=== PATIENT | male | born 1935 | race Caucasian/White ===

== ENCOUNTER 2017-05-13 10:13 | Day surgery (SDC) | payer MEDICARE, BC ==
[~2017-05-13 10:13] MED LIST: Acetaminophen TAB* 325 MG PO PRN; Buffered Lidocaine 0.9% SYRIN* 5 ML/SYR SYRINGE INTRADERM ONE; Cyclopentolate 1% OPTH.SOL* 2 ML BTL ONE; Ketorolac 0.5% OPHTH (NF) 0.5 % 5 ML BTL ONE; Lidocaine 1% MPF* 2 ML VIAL ONE; Neomycin/Polymy/Dex OPHTH.OIN* 3.5 GM ONE; Phenylephr/Ketorolac 1%/0.3% OPH DROP BTL ONE; Phenylephrine 2.5% OPTH.SOL* 2 ML BTL ONE; Tetracaine 0.5% OPTH.SOL 4 ML* 1 DROP BTL ONE; Tropicamide 1% OPTH.SOL* BTL ONE
[2017-05-13] MEDS ORDERED: Midazolam* 1 MG/ML 2 ML VIAL (2 MG) ONE (11:39)
[2017-05-13 12:10] VITALS: BP 151/82
--- NOTE | 2017-05-13 12:59 | OP ---
DATE OF OPERATION/DATE OF DICTATION: 05/13/2017 - [facility] DATE OF : 1935. SURGEON: Dr. Ghulam Padilla. ASSISTANT PROFESSOR OF RELIGION: None. ANESTHESIA: Topical with intravenous sedation. PRE-OP DIAGNOSIS: Cataract, left eye. POST-OP DIAGNOSIS: Cataract, left eye. OPERATIVE PROCEDURE: Phacoemulsification and cataract extraction with posterior chamber intraocular lens implant, left eye. COMPLICATIONS: None. BLOOD LOSS: None. DESCRIPTION OF PROCEDURE: The patient was brought to the operating room and received a small amount of intra-venous sedation. A drop of Tetracaine was placed in his left eye. He was prepped and draped in the usual sterile fashion for ophthalmic surgery and attention was directed to the left eye where a speculum was placed. A paracentesis was created at the 5 o'clock position and 0.1 cc of 1 percent preservative-free Lidocaine was injected into the anterior chamber followed by DisCoVisc. The eye was digitally stabilized while a 2.75 mm keratome was used to create a triplanar clear corneal incision at the 3 o'clock position. A continuous curvilinear capsulorrhexis was created with a cystotome and Utrata forceps. BSS on a cannula was used to hydrodissect the lens from the capsule. Phacoemulsification was performed in a [id number] technique to create four fragments which were removed. Residual cortical material was removed with irrigation and aspiration. DisCoVisc was used to inflate the capsular bag and an AUOOTO 21.0 diopter lens was folded and inserted into the capsular bag. DisCoVisc was removed using irrigation and aspiration. BSS on a cannula was used to hydrate the corneal stroma and seal the wound. At the end of the case the pupil was round and the lens was centered. The eye was of normal pressure and the wound was water tight. The speculum was removed and topical Maxitrol ointment was placed on the surface of the eye. The eye was closed, patched and shielded and the patient was sent to the recovery room in stable condition with post operative instructions and follow-up appointment given. [id number] #: [id number] MTDD
== END 2017-05-13 12:20 | disposition home or self-care (01) ==
LOC: OREAST 10:13
PROVIDERS: ATTEND Ophthalmology
DX: H25.12 Age-related nuclear cataract, left eye (principal); I48.92 Unspecified atrial flutter; Z79.01 Long term (current) use of anticoagulants; Z86.73 Personal history of transient ischemic attack (TIA), and cerebral infarction without residual deficits; I10 Essential (primary) hypertension; I71.4 Abdominal aortic aneurysm, without rupture
CPT/HCPCS: A9270-GY; C9447; J2250; V2632

== ENCOUNTER 2017-05-20 07:51 | Day surgery (SDC) | payer MEDICARE, BC ==
[2017-05-20] MEDS ORDERED: Midazolam* 1 MG/ML 2 ML VIAL (2 MG) ONE ×2 (08:14→09:06)
[2017-05-20] MEDS ORDERED: fentaNYL* 50 MCG/ML 2 ML VIAL (100 MCG VIAL) ONE (08:14)
[2017-05-20 09:01] VITALS: BP 152/83
--- NOTE | 2017-05-20 09:42 | OP ---
DATE OF OPERATION/DATE OF DICTATION: 05/20/2017 - [facility] DATE OF : 1935. SURGEON: Dr. Ghulam Padilla. AVIATION PROJECT MANAGER: None. ANESTHESIA: Topical with intravenous sedation. PRE-OP DIAGNOSIS: Cataract, right eye. POST-OP DIAGNOSIS: Cataract, right eye. OPERATIVE PROCEDURE: Phacoemulsification and cataract extraction with posterior chamber intraocular lens implant, right eye. COMPLICATIONS: None. BLOOD LOSS: None. DESCRIPTION OF PROCEDURE: The patient was brought to the operating room and received a small amount of intravenous sedation. A drop of Tetracaine was placed in his right eye. He was prepped and draped in the usual sterile fashion for ophthalmic surgery and attention was directed to the right eye where a speculum was placed. A paracentesis was created at the 11 o'clock position and 0.1 cc of 1 percent preservative-free Lidocaine was injected into the anterior chamber followed by DisCoVisc. The eye was digitally stabilized while a 2.75 mm keratome was used to create a triplanar clear corneal incision at the 9 o'clock position. A continuous curvilinear capsulorrhexis was created with a cystotome and Utrata forceps. BSS on a cannula was used to hydrodissect the lens from the capsule. Phacoemulsification was performed in a divide-and- conquer technique to create four fragments which were removed. Residual cortical material was removed with irrigation and aspiration. DisCoVisc was used to inflate the capsular bag and an AUOOTO 22.0 diopter lens was folded and inserted into the capsular bag. DisCoVisc was removed using irrigation and aspiration. BSS on a cannula was used to hydrate the corneal stroma and seal the wound. At the end of the case the pupil was round and the lens was centered. The eye was of normal pressure and the wound was water tight. The speculum was removed and topical Maxitrol ointment was placed on the surface of the eye. The eye was closed, patched and shielded and the patient was sent to the recovery room in stable condition with post operative instructions and follow-up appointment given. [id number] #: [id number] MTDD
[2017-05-20] MEDS ORDERED: Tetracaine 0.5% OPTH.SOL 4 ML* 1 DROP BTL ONE (13:56)
[2017-05-20] MEDS ORDERED: Neomycin/Polymy/Dex OPHTH.OIN* 3.5 GM ONE (13:56)
[2017-05-20] MEDS ORDERED: Tropicamide 1% OPTH.SOL* BTL ONE (13:56)
[2017-05-20] MEDS ORDERED: Lidocaine 1% MPF* 2 ML VIAL ONE (13:56)
[2017-05-20] MEDS ORDERED: Phenylephrine 2.5% OPTH.SOL* 2 ML BTL ONE (13:56)
[2017-05-20] MEDS ORDERED: Cyclopentolate 1% OPTH.SOL* 2 ML BTL ONE (13:56)
[2017-05-20] MEDS ORDERED: Ketorolac 0.5% OPHTH (NF) 0.5 % 5 ML BTL ONE (13:56)
== END 2017-05-20 09:05 | disposition home or self-care (01) ==
LOC: OREAST 07:51
PROVIDERS: ATTEND Ophthalmology
DX: H25.11 Age-related nuclear cataract, right eye (principal); Z86.73 Personal history of transient ischemic attack (TIA), and cerebral infarction without residual deficits; Z79.01 Long term (current) use of anticoagulants; I10 Essential (primary) hypertension; I71.4 Abdominal aortic aneurysm, without rupture; E11.9 Type 2 diabetes mellitus without complications; Z79.84 Long term (current) use of oral hypoglycemic drugs; E78.00 Pure hypercholesterolemia, unspecified
CPT/HCPCS: A9270-GY; C9447; J2250; J3010; V2632

== ENCOUNTER 2017-07-29 08:25 | Emergency (ER) | payer MEDICARE, BC ==
[2017-07-29 10:19] LABS: ABS Basophils 0.3 10^3/ul (0-0.2); ABS Eosinophils 0.1 10^3/ul (0-0.6); ABS Lymphocytes 0.7 10^3/ul (1.0-4.8); ABS Monocytes 0.6 10^3/ul (0-0.8); ABS Neutrophils 8.4 10^3/ul (1.5-7.7); ABS Nucleated RBC 0 10^3/ul; Eosinophil % 1.4 % (0-6); Hematocrit 31 % (42-52); Hemoglobin 10.4 g/dl (14.0-18.0); Lymphocyte % 6.6 % (25-47); Mean Corpuscular HGB Conc 34 g/dl (31-36); Mean Corpuscular Hemoglobin 32 pg (27-31); Mean Corpuscular Volume 93 fL (80-94); Mean Platelet Volume 7.6 um3 (7.4-10.4); Nucleated Red Blood Cells % 0.1; Platelet Count 323 10^3/ul (150-450); Red Cell Distribution Width 15 % (10.5-15); White Blood Count 10.1 10^3/ul (3.5-10.8)
[2017-07-29 10:58] LABS: Urine Appearance Clear; Urine Blood 1+ (Negative); Urine Color Yellow; Urine Ketones Negative (Negative); Urine Protein Negative (Negative); Urine Specific Gravity 1.008 (1.010-1.030); Urine Urobilinogen Negative (Negative)
[2017-07-29 11:07] LABS: EGFR Non-African American 45.9 (>60)
[2017-07-29 11:47] VITALS: BP 176/77
--- NOTE | 2017-08-01 07:46 | ED ---
Brandon Rudolph Angela scribed for Yunior Shah MD on 07/29/17 at 0947 . Medical Screening - HPI Summary HPI Summary: This pt is a 81 y/o male presenting to [facility] for an evaluation to be placed in a retirement. Pt reports he has been weak and is not able to manage independently at home. Pt was recently discharged from [facility] on 07/25/17 after a surgical hernia repair. [facility] and was set [facility] to go on 07/25/17 but last minute the pt decided not to go. He then called his web content & social media manager 3 days ago stating that he needed to be placed in a retirement due to his increased weakness. Pt states he was instructed to come to the ED for an evaluation in order to placed in a retirement. Denies any pain, chest pain, SOB, palpitations, abd pain. PMHx includes HTN, afib, CVA, hernia surgery. - History of Current Complaint Chief Complaint: EDGeneral Stated Complaint: LONG-TERM EVAL Time Seen by Provider: 07/29/17 08:38 Onset/Duration: Started Days Ago, Still Present Severity: mild Associated Signs and Symptoms: Other - POS: weakenss. Denies any other complaints. PMH/Surg Hx/FS Hx/Imm Hx Endocrine/Hematology History: Denies: Hx Diabetes Cardiovascular History: Reports: Hx Atrial Fibrillation, Hx Hypertension - ON DAILY MEDS Sensory History: Reports: Hx Cataracts - BILATERAL, Hx Contacts or Glasses - GLASSES Opthamlomology History: Reports: Hx Cataracts - BILATERAL, Hx Contacts or Glasses - GLASSES Neurological History: Reports: Hx CVA - Surgical History Surgery Procedure, Year, and Place: [facility]. 2009 [facility] Hx Anesthesia Reactions: No - Immunization History Date of Tetanus Vaccine: Unk Date of Influenza Vaccine: Fall 2014 Infectious Disease History: No Infectious Disease History: Denies: Traveled Outside the [place] in Last 30 Days - Family History Known Family History: Positive: Cardiac Disease - Father: aortic aneurysm, Diabetes - mother Family History: Father: stroke - Social History Alcohol Use: None Substance Use Type: Reports: None Smoking Status (MU): Never Smoked Tobacco Have You Smoked in the Last Year: No Review of Systems Negative: Fever Negative: Palpitations, Chest Pain Negative: Shortness Of Breath Gastrointestinal: Negative Genitourinary: Negative Musculoskeletal: Negative Positive: Weakness - generalized All Other Systems Reviewed And Are Negative: Yes Physical Exam - Summary Physical Exam Summary: VITAL SIGNS: Reviewed. GENERAL: Patient is a well-developed and nourished male who is lying comfortable in the stretcher. Patient is not in any acute respiratory distress. HEAD AND FACE: No signs of trauma. No ecchymosis, hematomas or skull depressions. No sinus tenderness. EYES: PERRLA, EOMI x 2, No injected conjunctiva, no nystagmus. EARS: Hearing grossly intact. Ear canals and tympanic membranes are within normal limits. MOUTH: Oropharynx within normal limits. NECK: Supple, trachea is midline, no adenopathy, no JVD, no carotid bruit, no c- spine tenderness, neck with full ROM. CHEST: Symmetric, no tenderness at palpation LUNGS: Clear to auscultation bilaterally. No wheezing or crackles. CVS: Regular rate and rhythm, S1 and S2 present, no murmurs or gallops appreciated. ABDOMEN: Soft, non-tender. No signs of distention. No rebound no guarding, and no masses palpated. Bowel sounds are normal. EXTREMITIES: FROM in all major joints, no edema, no cyanosis or clubbing. NEURO: Alert and oriented x 3. No acute neurological deficits. Speech is normal and follows commands. SKIN: Dry and warm Triage Information Reviewed: Yes Vital Signs On Initial Exam: Initial Vitals Temp Pulse Resp BP Pulse Ox 97.5 F 67 17 140/86 99 07/29/17 08:32 07/29/17 08:32 07/29/17 08:32 07/29/17 08:32 07/29/17 08:32 Vital Signs Reviewed: Yes Diagnostics - Vital Signs Vital Signs Temp Pulse Resp BP Pulse Ox 07/29/17 09:05 71 146/68 93 07/29/17 08:32 97.5 F 67 17 140/86 99 - Laboratory Result Diagrams: 07/29/17 09:56 07/29/17 09:56 Lab Statement: Any lab studies that have been ordered have been reviewed, and results considered in the medical decision making process. Re-Evaluation - Re-Evaluation First Eval Re-Evaluation Time: 09:43 Comment: Per web content & social media manager, pt has a bed offer in [facility]. Pt is awaiting paper work and in a couple of hours the pt can be transferred to [facility]. Second Eval Re-Evaluation Time: 11:20 Comment: Pt is demanding to leave and go home. Pt is alert and oriented x3, and has full capacity. He states we are too slow at arranging the retirement placement. wind up worker is coming to talk to the pt. Third Eval Re-Evaluation Time: 11:30 Comment: I spoke with the web content & social media manager who reports the pt has decided to go home. wind up worker will give him a referral to a visiting nurse. Course/Dx - Course Assessment/Plan: This pt is a 81 y/o male presenting to [facility] for an evaluation to be placed in a retirement. Pt reports he has been weak and is not able to manage independently at home. Pt was recently discharged from [facility] on after a surgical hernia repair. [facility] and was set up to go on 07/25/17 but last minute the pt decided not to go. He then called his web content & social media manager 3 days ago stating that he needed to be placed in a retirement due to his increased weakness. Pt states he was instructed to come to the ED for an evaluation in order to placed in a retirement. Denies any pain, chest pain, SOB, palpitations, abd pain. PMHx includes HTN, afib, CVA, hernia surgery. Test results without any significant abnormalities except creatinine of 1.47, glucose of 134, AST of 65, ALT of 79. wind up worker consulted with the pt for retirement placement. Per web content & social media manager, pt has a bed offer in [facility]. Pt is awaiting paper work and in a couple of hours the pt can be transferred to [facility]. While waiting on the paper work, pt is demanding to leave and go home. I evaluated the pt again, he is alert and oriented x3, and has full capacity. He states we are too slow at arranging the retirement placement. wind up worker came to speak with the pt again and reviewed with the pt the risks and benefits of leaving before finishing documentation for retirement placement. I spoke with the web content & social media manager who reports the pt has decided to go home. wind up worker will give the pt a referral to a visiting nurse. Pt understands and agrees. Therefore the pt will be discharged home with follow up from his PCP. I discussed all the findings and test results with the patient. All questions were answered to patient satisfaction. There were no further complaints or concerns. He is instructed to return to the ED for any worsening or new symptoms. Pt is hemodynamically stable, alert and oriented x3. - Diagnoses Provider Diagnoses: Weakness - Physician Notifications Discussed Care Of Patient With: Ginny Eastman Time Discussed With Above Provider: 09:26 Instructed by Provider To: Other - I discussed pt care with Ginny web content & social media manager, who reports to order routine blood work. She is trying to get the pt admitted to a retirement. Discharge - Sign-Out/Discharge Documenting (check all that apply): Discharge - discharge to home - Discharge Plan Condition: Stable Disposition: HOME Patient Education Materials: Weakness (ED) Referrals: Donal Steele MD [Primary Care Provider] - 3 Days Additional Instructions: Please follow up with your primary care provider. RETURN TO THE ED FOR ANY NEW OR WORSENING SYMPTOMS. The documentation as recorded by the Brandon parrish Angela accurately reflects the service I personally performed and the decisions made by , Yunior Shah MD.
== END 2017-07-29 11:45 | disposition home or self-care (01) ==
LOC: ED 08:25
DX: R53.1 Weakness (principal)
CPT/HCPCS: 36415; 80053; 81003; 81015; 85025; 87086; 99283